=== PATIENT | female | born 1970 | race Caucasian/White ===

== ENCOUNTER 2020-06-02 20:18 | Emergency (ER) | payer BC ==
[~2020-06-02] VITALS: Ht 162.6 cm; Wt 59.0 kg
[~2020-06-02 20:18] MED LIST: DARVOCET-N 1001 EACH PO; FLOMAX PO; IBUPROFEN 600600 M1 PO; IBUPROFEN 800800 M1 PO; LORTAB 5 MG/5001 TA1 PO; MOBIC15 MG PO; PERCOCET 5-3251 EACH PO; PHENERGAN 25 MG25 M1 PO; PHENERGAN25 MG RE; PROMS25 WY RECTAL; VALIUM5 MG PO; ZOFRAN 4 MG ORAL4 MG PO
[2020-06-02] MEDS ORDERED: ESCITALOPRAM OX20 MG PO (20:39)
[2020-06-02] MEDS ORDERED: AMBIEN 5 MG TABL5 M1 PO (20:40)
[2020-06-02] MEDS ORDERED: ELETRIPTAN HBR20 MG PO (20:40)
[2020-06-02] MEDS ORDERED: ALPRAZOLAM 0.50.5 M1 PO (20:40)
[2020-06-02 20:50] LABS: ABSOLUTE NEUTROPHILS 5.9 thou/uL (1.4-8.2); BASOPHILS 0.5 % (0.0-2.0); EOSINOPHILS 1.9 % (0.0-3.0); HEMATOCRIT 36.1 % (37.0-47.0); HEMOGLOBIN 11.9 gm/dL (12.0-15.0); LYMPHOCYTES 27.4 % (24.0-44.0); MCH 27.9 pg (26.0-34.0); MCHC 33.1 g/dL (28.0-37.0); MCV 84.3 fL (80.0-100.0); MONOCYTES 9.3 % (1.0-8.0); PLATELET COUNT 236 thou/uL (150-400); POLYS 60.9 % (36.0-66.0); RBC 4.28 mil/uL (4.20-5.00); RDW 14.4 % (10.5-14.5); WBC 9.7 thou/uL (4.0-11.0)
[2020-06-02 21:01] LABS: ANION GAP 9 mmol/L (7-16); BUN 18 mg/dL (7-18); CALCIUM 8.3 mg/dL (8.5-10.1); CHLORIDE 108 mmol/L (98-107); CO2 23 mmol/L (21-32); CREATININE 0.9 mg/dL (0.6-1.0); GLUCOSE 126 mg/dL (74-106); POTASSIUM 3.7 mmol/L (3.5-5.1); SODIUM 140 mmol/L (136-145)
[2020-06-02 21:12] LABS: ALBUMIN 3.8 g/dL (3.4-5.0); SGOT 8 U/L (15-37); SGPT 16 U/L (14-59); TOTAL BILIRUBIN 0.1 mg/dL (0.2-1.0); TOTAL PROTEIN 7.2 g/dL (6.4-8.2); TROPONIN-I <0.06 ng/mL (<0.06)
[2020-06-03] MEDS ORDERED: NORCO5 PO (00:08)
[2020-06-03] MEDS ORDERED: ZANAFLEX4 M1 PO (00:08)
[2020-06-03] MEDS ORDERED: NAPROSYN500 M1 PO (00:08)
[2020-06-03 00:15] VITALS: BP 121/74
--- NOTE | 2020-06-04 07:01 | EKG ---
[place] [place] [address] [facility] [place] [address] ELECTROCARDIOGRAM REPORT Name: FOX GATES [facility] [id number] Admission: 06/02/20 Attend Phys: Discharge: 06/03/20 Date of : 74 Report #: [id number] [facility] ED Test Date: 2020-06-02 Test Time: 20:28:08 Pat Name: FOX GATES Department: Room: Gender: F Hide Salter: andrew : 1970 Requested By: Samantha Fair Order Number: [id number] MD: Gualberto Yang Measurements Intervals [place] Rate: 103 P: 66 OR: 139 QRS: 39 QRSD: 93 T: 62 QT: 347 QTc: 454 Interpretive Statements Sinus tachycardia Probable left atrial enlargement Compared to ECG 04/11/2011 22:22:46 Sinus rhythm no longer present Electronically Signed On 06-04-2020 7:01:06 CDT by Gualberto Yang [email or web address] <ELECTRONICALLY SIGNED> By: Gualberto Yang MD, [facility] 06/04/20 0701 27 27 Gualberto Yang MD, FACC /EPI
== END 2020-06-03 00:42 | disposition home or self-care (01) ==
LOC: ER 20:18
PROVIDERS: Nurse Practitioner Family
DX: R07.89 Other chest pain (principal); J90 Pleural effusion, not elsewhere classified; I10 Essential (primary) hypertension; G43.909 Migraine, unspecified, not intractable, without status migrainosus; Z79.899 Other long term (current) drug therapy; Z88.0 Allergy status to penicillin; Z88.8 Allergy status to other drugs, medicaments and biological substances